=== PATIENT | female | born 1950 | race American Indian/Alaskan Native ===

== ENCOUNTER 2018-07-17 09:11 | Day surgery (SDC) | payer MEDICARE ==
[2018-07-13 10:11] VITALS: BMI 20.9
[2018-07-17 10:00] LABS: BASO # 0.02 K/mm3 (0.0-2.0); BASO % 0.3 % (0.0-3.0); EOS # 0.3 (0.0-0.7); EOS % 4.8 % (1.5-5.0); GRAN # 4.75 (1.4-6.5); HEMOGLOBIN 8.7 g/dL (12.0-16.0); LYMPH # 1.4 (1.2-3.4); LYMPH % 20.5 % (22.0-35.0); MEAN CELL VOLUME 79.6 fl (80.0-105.0); MEAN CORPUSCULAR HGB CONC 31.4 g/dl (31.0-37.0); MONO # 0.2 (0.1-0.6); MONO % 3.4 % (1.0-6.0); PLATELET COUNT 583 10^3/uL (120.0-450.0); RBC 3.48 10^6/uL (3.5-6.1); RED CELL DISTRIBUTION WIDTH 19.1 % (11.5-14.5); WHITE BLOOD COUNT 6.7 10^3/uL (4.5-11.0)
[2018-07-17 10:06] LABS: CALCIUM 8.7 mg/dL (8.4-10.5)
[2018-07-17 10:09] LABS: INR 1.1; PROTHROMBIN TIME 12.7 SECONDS (9.4-12.5)
[2018-07-17] MEDS ORDERED: Midazolam 2 MG/2 ML VIAL ONE ×2 (11:28→12:52)
[2018-07-17] MEDS ORDERED: Lidocaine 1% Inj (20ml) ONE (11:30)
[2018-07-17] MEDS ORDERED: Lidocaine 2% Inj (20ml) ONE (12:22)
[2018-07-17] MEDS ORDERED: Oxycodone/Acetaminophen 5/325 mg Tab PO PRN (12:22)
[2018-07-17] MEDS ORDERED: Sodium Chloride 0.45% 1,000 ML IV SCH (12:30)
[2018-07-17] MEDS ORDERED: Midazolam 2 MG/2 ML VIAL IVP ONE (12:41)
[2018-07-17 14:23] VITALS: RESP 18; TEMP 97.5
[2018-07-17 17:44] VITALS: BP 118/44; PULSE 55; O2SAT 100
--- NOTE | 2018-07-17 18:37 | CT ---
PROCEDURE: CT guided abdominal biopsy. HISTORY: Ovarian carcinoma. Status post surgery. 8.7 cm heterogeneous mass in the gallbladder fossa. Evaluate for tumor recurrence. PHYSICIAN(S): Nathaniel Putnam MD. TECHNIQUE: The relative risks and indications of the procedure were explained to the patient and consent obtained. The patient was placed supine on the CT scanner and preliminary images through the upper abdomen obtained. Conscious sedation and monitoring were provided throughout the procedure by a nurse. There is an 8.7 cm heterogeneous mass in the gallbladder fossa. A similar mass is noted adjacent to the spleen. A small amount of ascites is present.. A right anterior approach was selected and the area prepped and draped in the usual sterile fashion. 1% Xylocaine was used to anesthetize the skin and soft tissues. A 17-gauge guiding needle was advanced into the 8.7 cm gallbladder fossa mass. Its position was confirmed with CT. Using coaxial technique, multiple core biopsies were obtained. The postprocedure images show no evidence of significant hemorrhage. IMPRESSION: 1. CT-guided abdominal biopsy as described above.
--- NOTE | 2018-07-17 18:39 | VASCULAR ---
PROCEDURE: Ultrasound and fluoroscopic right internal jugular venous access port. CLINICAL HISTORY: Metastatic ovarian carcinoma.Venous port for chemotherapy. PHYSICIAN(S): Nathaniel Putnam M.D. TECHNIQUE: The relative risks and indications of the procedure were explained to the patient and consent obtained. The patient was placed supine on the arteriogram table and the right neck and chest prepped and draped in the usual sterile fashion. Conscious sedation monitoring was provided throughout the procedure by a nurse. Antibiotics were given prior to the procedure. Under direct ultrasound guidance, the right internal jugular vein was punctured with a micro-puncture set. A 0.035 angled Glidewire was advanced into the IVC. A 4 cm incision was made below the right clavicle and the pocket blunted dissected. A 8 [place] single-lumen catheter, 23 cm long, was advanced to the SVC/RA junction. The catheter was trimmed and attached to the port. The port aspirates and injects easily. The port was placed in the pocket and closed in 2 layers. The patient tolerated the procedure well. IMPRESSION: Ultrasound and fluoroscopically placed right internal jugular venous access port.
== END 2018-07-17 17:30 | disposition home or self-care (01) ==
LOC: SDSVAS 09:11
PROVIDERS: ATTEND Radiology Vascular & Interventional Radiology
DX: C56.9 Malignant neoplasm of unspecified ovary (principal); I10 Essential (primary) hypertension
CPT/HCPCS: 36415; 36561; 49180; 76937; 77001; 77012; 80048; 85025; 85610; 85730; 88305; 99152; 99153; C1769; C1788; J0690; J1644; J2250; J2405; J3010; J7030